=== PATIENT | female | born 1995 | race Hispanic/Latino ===

== ENCOUNTER 2018-10-25 21:35 | Emergency (ER) | payer SELFPAY ==
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
[2018-10-25 21:49] VITALS: BP 135/80
[2018-10-25] MEDS ORDERED: IBUPROFEN PO ONE (22:04)
[2018-10-26 00:01] LABS: Bacteria,Urine 1+ /HPF (Negative); Bilirubin,Urine NEG (Negative); Blood,Urine NEG (Negative); Color,Urine Yellow (Yellow); Mucus,Urine 3+ /HPF; Urobilinogen,Urine < 2.0 mg/dL (<2.0)
[2018-10-26 00:10] LABS: HCG Qualitative,Urine Negative (Negative)
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
== END 2018-10-26 00:04 | disposition left against medical advice (07) ==
LOC: ED 21:35
DX: S09.8XXA Other specified injuries of head, initial encounter (principal); Z91.040 Latex allergy status; Z91.018 Allergy to other foods; Y04.2XXA Assault by strike against or bumped into by another person, initial encounter; Y93.89 Activity, other specified; Y92.098 Other place in other non-institutional residence as the place of occurrence of the external cause; Y99.8 Other external cause status
CPT/HCPCS: 81001; 81025; 99283